=== PATIENT | male | born 1970 | race Two or more races ===

== ENCOUNTER 2017-11-18 18:04 | Emergency (ER) | payer SELFPAY ==
--- NOTE | 2017-11-18 18:24 | PDOC ---
Rapid Medical Evaluation Time Seen by Provider: 11/18/17 18:22 Medical Evaluation: 11/18/17 18:22 The patient presents with a chief complaint of: hand pain I have performed a brief in-person evaluation of this patient. Pertinent physical exam findings: vss, I have ordered the following: xray The patient will proceed to the ED for further evaluation.
[2017-11-18 18:26] VITALS: BP 143/80; PULSE 83; TEMP 98.6; BMI 29.7
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
== END 2017-11-18 19:50 | disposition home or self-care (01) ==
LOC: JERFT 18:04
DX: S63.638A Sprain of interphalangeal joint of other finger, initial encounter (principal); S90.31XA Contusion of right foot, initial encounter; H91.91 Unspecified hearing loss, right ear; V49.59XA Passenger injured in collision with other motor vehicles in traffic accident, initial encounter; Y92.488 Other paved roadways as the place of occurrence of the external cause; Y93.89 Activity, other specified; Y99.8 Other external cause status
CPT/HCPCS: 73130-TC-RT-FY; 73630-TC-RT-FY; 99281-25

== ENCOUNTER 2024-02-06 13:07 | Emergency (ER) | payer OTHER ==
[2024-02-06 13:14] VITALS: BP 113/73; PULSE 79; RESP 18; TEMP 97.9; BMI 34.9
[2024-02-06] MEDS ORDERED: LIDOCAINE 4% PATCH TP ONE (13:58)
[2024-02-06] MEDS ORDERED: IBUPROFEN 600 MG TABLET (FP) PO ONE (13:59)
[2024-02-06] MEDS ORDERED: METHOCARBAMOL 500 MG TABLET ONE (13:59)
[2024-02-06] MEDS: LIDOCAINE 4% PATCH TP ONE (14:04)
[2024-02-06] MEDS: METHOCARBAMOL 500 MG TABLET PO ONE (14:05)
[2024-02-06] MEDS: IBUPROFEN 600 MG TABLET (FP) PO ONE (14:05)
== END 2024-02-06 15:18 | disposition home or self-care (01) ==
LOC: JERFT 13:07 → JER 13:07 → JERFT 15:18
DX: S46.911A Strain of unspecified muscle, fascia and tendon at shoulder and upper arm level, right arm, initial encounter (principal); M79.645 Pain in left finger(s); Y04.0XXA Assault by unarmed brawl or fight, initial encounter
CPT/HCPCS: 73030-TC-RT-FY; 73130-TC-LT-FY; 99284-25